=== PATIENT | female | born 1995 | race Caucasian/White ===

== ENCOUNTER 2017-05-28 01:27 | Emergency (ER) | payer SELFPAY ==
[~2017-05-28] VITALS: Ht 160 cm; Wt 68.0 kg
[2017-05-28] MEDS ORDERED: LACTATED RINGERS 1,000 ML IV ONE (01:58)
[2017-05-28] MEDS ORDERED: PIPERACILLIN SODIUM/TAZOBACTAM 4.5 GM in NS (IVPB) 100 ML IV ONE (02:00)
[2017-05-28] MEDS ORDERED: ONDANSETRON 4 MG/2 ML (SDV) Z0FRAN IVP PRN (02:00)
[2017-05-28] MEDS ORDERED: KETOROLAC 30 MG/ML VIAL IVP ONE (02:00)
[2017-05-28 02:06] LABS: BASOPHILS % (AUTO) 0 % (0-10); EOSINOPHILS % (AUTO) 0 % (0-10); HEMATOCRIT 38 % (35-52); HEMOGLOBIN 13.1 G/DL (11.5-16.0); LYMPHOCYTES % (AUTO) 7 % (12-44); MEAN CORPUSCULAR HEMOGLOBIN 30 PG (25-34); MEAN CORPUSCULAR HGB CONC 35 G/DL (32-36); MEAN CORPUSCULAR VOLUME 87 FL (80-99); MEAN PLATELET VOLUME 10.1 FL (7.4-10.4); MONOCYTES # (AUTO) 0.9 X 10^3 (0.0-1.0); MONOCYTES % (AUTO) 6 % (0-12); NEUTROPHILS # (AUTO) 12.5 X 10^3 (1.8-7.8); NEUTROPHILS % (AUTO) 87 % (42-75); PLATELET COUNT 381 10^3/uL (130-400); RED BLOOD COUNT 4.36 10^6/uL (4.35-5.85); RED CELL DISTRIBUTION WIDTH 12.1 % (10.0-14.5); WHITE BLOOD COUNT 14.4 10^3/uL (4.3-11.0)
[2017-05-28 02:20] LABS: ALANINE AMINOTRANSFERASE 19 U/L (0-55); ALBUMIN 4.2 GM/DL (3.2-4.5); ALKALINE PHOSPHATASE 106 U/L (40-136); BILIRUBIN,TOTAL 1.2 MG/DL (0.1-1.0); BUN/CREATININE RATIO 18; CALCIUM 8.9 MG/DL (8.5-10.1); CARBON DIOXIDE 18 MMOL/L (21-32); CHLORIDE 105 MMOL/L (98-107); CREATININE SERUM 0.65 MG/DL (0.60-1.30); GFR ESTIMATED > 60; GLUCOSE 121 MG/DL (70-105); LIPASE 22 U/L (8-78); POTASSIUM 3.9 MMOL/L (3.6-5.0); SODIUM 139 MMOL/L (135-145)
[2017-05-28 02:26] LABS: BAND NEUTROPHILS 2 %; LYMPHOCYTES % (MANUAL) 9 %; MONOCYTES % (MANUAL) 4 %; NEUTROPHILS % (MANUAL) 85 %; RBC MORPH NORMAL
[2017-05-28 02:42] LABS: PROTHROMBIN TIME PATIENT 13.5 SEC (12.2-14.7)
--- NOTE | 2017-05-28 03:29 | ED Abdominal Pain ---
General Chief Complaint: Abdominal/GI Problems Stated Complaint: VOMITING,ABD PAIN Nursing Triage Note: PT C/O RLQ PAIN, N/V AND FEVER AND CHILLS SINCE YESTERDAY. SHE REPORTS WORSENING OF PAIN THIS AM. Sepsis Screen: No Definite Risk Source of Information: Patient, Family (sister) Exam Limitations: No Limitations History of Present Illness Time Seen By Provider: 01:30 Initial Comments Patient presents to ER by private conveyance with her sister and a chief complaint that for the past 1 day she's had some nausea and vomited 3 times yesterday. Nausea and vomiting came 2 hours after she ate breakfast and she's not been able to keep much food or drink down since then. She had some abdominal pain in her right upper quadrant but because she is not been able to tolerate any pain medicines has not taken any Tylenol or Motrin. She says she is not sexually active but not on any kind of control. She's had no dysuria or discharge. She's had no fevers or chills nor rash. She denies shortness of breath or chest pain. She also has not had any recent trauma. She denies any surgeries on her abdomen. She had a bowel movement yesterday was normal formed without straining. Allergies and Home Medications Allergies Coded Allergies: No Known Drug Allergies (Unverified , 05/28/17) Home Medications Ondansetron 4 Mg Tab.rapdis, 4 MG PO Q6H PRN for NAUSEA/VOMITING, #8 Ref 0 Prescribed by: KAMILAH AGUDELO on 05/28/17 0336 Review of Systems Constitutional: No chills, No fever, malaise EENTM: No Blurred Vision, No Double Vision Respiratory: Denies Cough, Denies Shortness of Air Cardiovascular: Denies Chest Pain, Denies Palpitations Gastrointestinal: See HPI, Denies Abdomen Distended, Abdominal Pain, Denies Constipated, Denies Diarrhea, Nausea, Vomiting Skin: No pruritus, No rash Past Ozouxvm-Nvnzlk-Nngqxn Hx Patient Social History Alcohol Use: Occasionally Uses Alcohol Beverage of Choice: Wine Recreational Drug Use: No Smoking Status: Never a Smoker 2nd Hand Smoke Exposure: No Recent Foreign Travel: No Contact w/Someone Who Travel: No Recent Infectious Disease Expo: No Recent Hopitalizations: No Seasonal Allergies Seasonal Allergies: No Surgeries History of Surgeries: No Physical Exam Vital Signs VS - Last 72 Hours, by Label 05/28/17 01:30 Temp 100.4 Pulse 109 Resp 18 B/P (MAP) 134/98 (110) Pulse Ox 99 O2 Delivery Room Air Capillary Refill : Less Than 3 Seconds General Appearance: WD/WN, mild distress HEENT: PERRL/EOMI, pharynx normal Neck: non-tender, normal inspection Respiratory: chest non-tender, lungs clear, normal breath sounds, no respiratory distress, no accessory muscle use Cardiovascular: normal peripheral pulses, regular rate, rhythm, no edema Peripheral Pulses: 2+ Dorsalis Pedis (R), 2+ Left Dors-Pedis (L) Gastrointestinal: normal bowel sounds, soft, no organomegaly, No distended, No guarding, No rebound, tenderness (right upper quadrant with positive Saeed sign ), other (negative for tenderness over McBurney's point. Negative for mesenteric signs such as pain on shaking of abdomen, standing up or percussion to the base of her heel.) Extremities: non-tender, normal inspection, no pedal edema, normal capillary refill Neurologic/Psychiatric: alert, normal mood/affect, oriented x 3 Focused Exam Evaluation Lactate Level Laboratory Tests 05/28/17 02:10: Lactic Acid Level 1.76 Lactic Acid Level Laboratory Tests Test 05/28/17 02:10 Lactic Acid Level 1.76 MMOL/L (0.50-2.00) Progress/Results/Core Measures Results/Orders Lab Results Laboratory Tests Test 05/28/17 01:45 05/28/17 02:10 05/28/17 02:25 05/28/17 03:55 Range/Units White Blood Count 14.4 H 4.3-11.0 10^3/uL Red Blood Count 4.36 4.35-5.85 10^6/uL Hemoglobin 13.1 11.5-16.0 G/DL Hematocrit 38 35-52 % Mean Corpuscular Volume 87 80-99 FL Mean Corpuscular Hemoglobin 30 25-34 PG Mean Corpuscular Hemoglobin Concent 35 32-36 G/DL Red Cell Distribution Width 12.1 10.0-14.5 % Platelet Count 381 130-400 10^3/uL Mean Platelet Volume 10.1 7.4-10.4 FL Neutrophils (%) (Auto) 87 H 42-75 % Lymphocytes (%) (Auto) 7 L 12-44 % Monocytes (%) (Auto) 6 0-12 % Eosinophils (%) (Auto) 0 0-10 % Basophils (%) (Auto) 0 0-10 % Neutrophils # (Auto) 12.5 H 1.8-7.8 X 10^3 Lymphocytes # (Auto) 1.0 1.0-4.0 X 10^3 Monocytes # (Auto) 0.9 0.0-1.0 X 10^3 Eosinophils # (Auto) 0.0 0.0-0.3 10^3/uL Basophils # (Auto) 0.0 0.0-0.1 10^3/uL Neutrophils % (Manual) 85 % Lymphocytes % (Manual) 9 % Monocytes % (Manual) 4 % Band Neutrophils 2 % Blood Morphology Comment NORMAL Sodium Level 139 135-145 MMOL/L Potassium Level 3.9 3.6-5.0 MMOL/L Chloride Level 105 98-107 MMOL/L Carbon Dioxide Level 18 L 21-32 MMOL/L Anion Gap 16 H 5-14 MMOL/L Blood Urea Nitrogen 12 7-18 MG/DL Creatinine 0.65 0.60-1.30 MG/DL Estimat Glomerular Filtration Rate > 60 BUN/Creatinine Ratio 18 Glucose Level 121 H 70-105 MG/DL Calcium Level 8.9 8.5-10.1 MG/DL Total Bilirubin 1.2 H 0.1-1.0 MG/DL Aspartate Amino Transf (AST/SGOT) 21 5-34 U/L Alanine Aminotransferase (ALT/SGPT) 19 0-55 U/L Alkaline Phosphatase 106 40-136 U/L Total Protein 8.0 6.4-8.2 GM/DL Albumin 4.2 3.2-4.5 GM/DL Lipase 22 8-78 U/L Lactic Acid Level 1.76 0.50-2.00 MMOL/L Prothrombin Time 13.5 12.2-14.7 SEC INR Comment 1.0 0.8-1.4 Activated Partial Thromboplast Time 29 24-35 SEC Urine Color YELLOW Urine Clarity SLIGHTLY CLOUDY Urine pH 6 5-9 Urine Specific [place] 1.015 L 1.016-1.022 Urine Protein NEGATIVE NEGATIVE Urine Glucose (UA) NEGATIVE NEGATIVE Urine Ketones NEGATIVE NEGATIVE Urine Nitrite NEGATIVE NEGATIVE Urine Bilirubin NEGATIVE NEGATIVE Urine Urobilinogen NORMAL NORMAL MG/DL Urine Leukocyte Esterase 2+ H NEGATIVE Urine RBC (Auto) NEGATIVE NEGATIVE Urine RBC 0-2 /HPF Urine WBC 0-2 /HPF Urine Squamous Epithelial Cells 10-25 H /HPF Urine Crystals NONE /LPF Urine Bacteria TRACE /HPF Urine Casts NONE /LPF Urine Mucus NEGATIVE /LPF Urine Culture Indicated NO Urine Test NEGATIVE NEGATIVE My Orders Orders - KAMILAH AGUDELO Cbc With Automated Diff (05/28/17 01:58) Comprehensive Metabolic Panel (05/28/17 01:58) Lactic Acid Analyzer (05/28/17 01:58) Blood Culture (05/28/17 01:58) Sputum Culture (05/28/17 01:58) Ua Culture If Indicated (05/28/17 01:58) Protime With Inr (05/28/17 01:58) Partial Thromboplastin Time (05/28/17 01:58) O2 (05/28/17 01:58) Ondansetron Injection (Zofran Injectio (05/28/17 02:00) Saline Lock/Iv-Start (05/28/17 01:58) Saline Lock/Iv-Start (05/28/17 01:58) Piperacillin Sodium/Tazobactam (Zosyn Vi (05/28/17 02:00) Vital Signs Adult Sepsis Patie Q1H (05/28/17 01:58) Remove Rings In Anticipation O (05/28/17 01:58) Saline Lock/Iv-Start (05/28/17 01:58) Lactated Ringers (Lr 1000 Ml Iv Solution (05/28/17 01:58) Hcg,Qualitative Urine (05/28/17 01:58) Lipase (05/28/17 01:58) Us Gallbladder 11134 (05/28/17 01:58) Ketorolac Injection (Toradol Injection) (05/28/17 02:00) Manual Differential (05/28/17 01:45) Medications Given in ED Current Medications Medications Dose Ordered Sig/Adali Route Start Time Stop Time Status Last Admin Dose Admin Ketorolac Tromethamine 15 mg ONCE ONCE IVP 05/28/17 02:00 05/28/17 02:02 DC 05/28/17 02:09 15 MG Lactated Ringer's 1,000 ml @ 0 mls/hr Q0M ONCE IV 05/28/17 01:58 05/28/17 02:02 DC 05/28/17 02:09 0 MLS/HR Ondansetron HCl 4 mg ONCE PRN IVP 05/28/17 02:00 05/28/17 02:10 DC 05/28/17 02:09 4 MG Vital Signs/I&O Vital Sign - Last 12Hours 05/28/17 01:30 Temp 100.4 Pulse 109 Resp 18 B/P (MAP) 134/98 (110) Pulse Ox 99 O2 Delivery Room Air Blood Pressure Mean: 110 Progress Note : Time: 03:27 Progress Note Patient was given 15 mg of Toradol and some Zofran and her symptoms have resolved. Ultrasound of her right upper quadrant does not reveal infected, impacted or dilated gallbladder or duct's. Her alkaline phosphatase is normal. Bilirubin is mildly elevated. Her white count is mildly elevated at 14,000 which could be from her recent nausea and vomiting. A viral gastroenteritis could possibly explain her epigastric and right upper quadrant pain. Since her pain resolved with the NSAIDs we'll give her some antibiotics to go home with and told her to keep taking the Tylenol Motrin as necessary. If her pain becomes unbearable despite these medications or her nausea does not respond to the Zofran or she develops a fever above 100.3 she should return to the ER. We are still pending the urinalysis. Diagnostic Imaging Diagonstic Imaging: Ultrasound Plain Films/CT/US/NM/MRI: abdomen (right upper quadrant) Comments Unremarkable all bladder ultrasound. Negative for stones, cholecystitis, ductal dilatation. Stat read read no cholelithiasis. No ductal dilatation. Reviewed: Reviewed [place] Study, Reviewed by Me Departure Impression Impression: Primary Impression: Right upper quadrant abdominal pain of unknown etiology Additional Impression: Nausea & vomiting Qualified Codes: R11.2 - Nausea with vomiting, unspecified Disposition: HOME, SELF-CARE Condition: Improved Departure-Patient Inst. Decision time for Depature: 04:28 Referrals: NO,LOCAL PHYSICIAN (PCP/Family) Primary Care Physician Patient Instructions: Viral Gastroenteritis, Adult (DC) Add. Discharge Instructions: Catch up with your fluid intake with half strength Gatorade or water. If you have nausea you can take one tablet of Zofran and place it on your tongue every 6 hours as needed. If you're having pain you can use 800 mg of ibuprofen every 8 hours and/or 1000 mg of Tylenol every 8 hours. If you're pain becomes unbearable or if you have nausea and vomiting despite the Zofran you should return to the ER. If you develops a fever above 102.5F you should return to the ER for further evaluation. If you do vomit you should give yourself some gut rest. Do not eat or drink anything for one to 2 hours. Then you may slowly reintroduce sips of clear liquids and advance your diet as tolerated. All discharge instructions reviewed with patient and/or family. Voiced understanding. Scripts Ondansetron (Ondansetron Odt) 4 Mg Tab.rapdis 4 MG PO Q6H Y for NAUSEA/VOMITING, #8 TAB 0 Refills Prov: KAMILAH AGUDELO 05/28/17 Work/School Note: Work Release Form Date Seen in the Emergency Department: May 28, 2017 Return to Work: May 29, 2017 Restrictions: No Restrictions KAIMLAH AGUDELO May 28, 2017 03:29
[2017-05-28] MEDS ORDERED: ONDA4TAB11 PO (03:36)
[2017-05-28 04:03] LABS: BILIRUBIN,URINE NEGATIVE (NEGATIVE); CLARITY,URINE SLIGHTLY CLOUDY; COLOR,URINE YELLOW; GLUCOSE, URINE (UA) NEGATIVE (NEGATIVE); KETONES,URINE NEGATIVE (NEGATIVE); LEUKOCYTE ESTERASE ,URINE 2+ (NEGATIVE); NITRITE,URINE NEGATIVE (NEGATIVE); PH,URINE 6 (5-9); PROTEIN,URINE NEGATIVE (NEGATIVE); UROBILINOGEN,URINE NORMAL (NORMAL)
[2017-05-28 04:16] LABS: BACTERIA,URINE TRACE /HPF; RBC,URINE 0-2 /HPF; WBC,URINE 0-2 /HPF
[2017-05-28 04:30] VITALS: BP 128/74
--- NOTE | 2017-05-28 08:22 | Diagnostic Imaging Report ---
PROCEDURE: US Gallbladder. TECHNIQUE: Multiple real-time grayscale images were obtained over the right upper quadrant in various projections. INDICATION: Right-sided pain. Liver parenchyma appeared normal. The gallbladder normal. There is no intra-or extrahepatic bile duct dilatation. The right kidney is unobstructed. Pancreas largely obscured from visualization by bowel gas. IMPRESSION: No hepatobiliary abnormality. No pathological finding visualized. Dictated by: Dictated on workstation # [id number]
== END 2017-05-28 04:30 | disposition home or self-care (01) ==
LOC: EDUNIT# 01:27 → ER 01:32
DX: R10.11 Right upper quadrant pain (principal); R11.2 Nausea with vomiting, unspecified
CPT/HCPCS: 36415; 76705; 80053; 81000; 83605; 83690; 84703; 85007; 85027; 85610; 85730; 87040

== ENCOUNTER → 2020-01-07 | Outpatient (CLI) | payer BC ==
[~2020-01-07] MED LIST: CATHETER FLUSH 10 ML SYR IV PRN; ONDA4TAB11 PO
--- NOTE | 2020-01-07 12:12 | Diagnostic Imaging Report ---
INDICATION: Right upper quadrant pain. TECHNIQUE: Patient was administered 5.4 mCi technetium 99m Choletec intravenously and imaging over the abdomen was performed. At 45 minutes, patient ingested 8 ounces of Ensure and a gallbladder ejection fraction was calculated. Patient denied discomfort during the study. FINDINGS: There is homogeneous uptake of activity by the liver. Prompt excretion of activity into the common duct and gallbladder is noted with normal passage of activity into the small bowel. Gallbladder ejection fraction is normal at 36%. Normal values are 35% or greater. IMPRESSION: Normal HIDA scan and gallbladder ejection fraction. Dictated by: Dictated on workstation # [id number]
== END ==
LOC: CARD 09:30
PROVIDERS: ATTEND Nurse Practitioner
DX: R10.11 Right upper quadrant pain (principal); R11.2 Nausea with vomiting, unspecified; R10.13 Epigastric pain
CPT/HCPCS: 78227; A9537

== ENCOUNTER → 2021-01-24 | Outpatient (CLI) | payer BC ==
[~2021-01-24] MED LIST changes: -CATHETER FLUSH 10 ML SYR IV PRN
--- NOTE | 2021-01-24 16:46 | Diagnostic Imaging Report ---
INDICATION: patient, survey. TECHNIQUE: Multiple real-time grayscale images were obtained over the gravid uterus. COMPARISON: None. FINDINGS: A single live intrauterine fetus is seen measuring at 19 weeks 2 days in size by composite measurements. Fetus is in breech presentation. Amniotic fluid index is normal at 9.4 cm. Placenta is anterior and somewhat low lying, about 2.3 cm from the internal cervical os. heart rate is 142 BPM. Cervical length is 3.3 cm. survey is somewhat limited. Normal-appearing bladder and stomach were seen. Intracranial ventricles appear normal. Four-chamber heart view and cord and cord insertion were not well seen. spine and kidneys were not well seen. There is no adnexal free fluid. Biometrical measurements are as follows: Biparietal 4.06 cm, age 18 weeks 3 days. Head circumference 16.57 cm, age 19 weeks 2 days. Abdominal circumference 13.81 cm, age 19 weeks 2 days. Femur length 3.16 cm, age 19 weeks 6 days. Sonographic estimate age: 19 weeks 2 days. Sonographic estimated date of delivery: 06/18/21. Estimated Weight: 293 gm (+/- 43 gm). LMP percentile: 24%. heart rate: 142 beats per minute. number: 1 of 1. IMPRESSION: Single live intrauterine fetus measuring 19 weeks 2 days in size. survey was limited with multiple structures not well seen at this time, follow-up study in a couple of weeks may be helpful. Dictated by: Dictated on workstation # [id number]
== END ==
LOC: RAD 14:30
PROVIDERS: ATTEND Nurse Practitioner Women's Health
DX: Z34.02 Encounter for supervision of normal first pregnancy, second trimester (principal); Z3A.19 19 weeks gestation of pregnancy
CPT/HCPCS: 76805

== ENCOUNTER 2021-02-14 18:15 | Outpatient (CLI) | payer BC, MEDICAID ==
[~2021-02-14] VITALS: Ht 160 cm; Wt 73.8 kg
[2021-02-14 18:39] VITALS: BP 127/84
[2021-02-14 18:41] VITALS: BP 127/84
[2021-02-14 18:59] LABS: BILIRUBIN,URINE NEGATIVE (NEGATIVE); CLARITY,URINE CLEAR; COLOR,URINE YELLOW; GLUCOSE, URINE (UA) NEGATIVE (NEGATIVE); KETONES,URINE NEGATIVE (NEGATIVE); LEUKOCYTE ESTERASE ,URINE NEGATIVE (NEGATIVE); NITRITE,URINE NEGATIVE (NEGATIVE); PH,URINE 7.5 (5-9); PROTEIN,URINE NEGATIVE (NEGATIVE)
[2021-02-14 19:08] LABS: BACTERIA,URINE NEGATIVE /HPF; SQUAMOUS EPITHELIAL CELL,UR 0-2 /HPF
[2021-02-14] MEDS ORDERED: PREN-37 PO (19:20)
[2021-02-14 19:31] VITALS: BP 127/84
--- NOTE | 2021-02-15 09:18 | Physician Query-Final Dx ---
ADIS NOEL 02/15/21 0918: Clinic Account Progress/Dx Physician Query: Please give diagnosis Please include # weeks gestation Date of Service Feb 14, 2021 at 18:15 JIMBO PUGH MD 02/15/21 1429: Clinic Account Progress/Dx DIAGNOSIS: Diagnosis 23 weeks with vaginal discharge / leukorrhea ADIS NOEL Feb 15, 2021 09:18 JIMBO PUGH MD Feb 15, 2021 14:29
== END 2021-02-14 19:30 | disposition home or self-care (01) ==
LOC: WSo 18:15 → LDRP 18:21 → WSo 19:30
PROVIDERS: ATTEND Obstetrics & Gynecology
DX: O42.912 Preterm premature rupture of membranes, unspecified as to length of time between rupture and onset of labor, second trimester (principal); N89.8 Other specified noninflammatory disorders of vagina; Z3A.23 23 weeks gestation of pregnancy
CPT/HCPCS: 81000

== ENCOUNTER 2022-03-24 22:57 | Emergency (ER) | payer BC, MEDICAID ==
[~2022-03-24 22:57] MED LIST changes: +PREN-37 PO
--- NOTE | 2022-03-24 23:13 | ED Abdominal Pain ---
General Stated Complaint: ABD PAIN Source of Information: Patient Exam Limitations: No Limitations History of Present Illness Date Seen by Provider: Mar 24, 2022 Time Seen by Provider: 23:03 Initial Comments 56-year-old female presents for right lower mid abdominal pain. Symptoms started just prior to arrival. She has been pain in this area before with [employer] work-ups over she states its not been this severe. Is described as sharp stabbing pain in the right mid to lower abdomen without radiation. No aggravating or alleviating factors. Associated with nausea and some loose stools this evening. She was fine prior to the onset of her symptoms currently no changes in bladder habits. She has had a Depo shot and her last menstrual cycle was 2 months ago. No vaginal symptoms. Allergies and Home Medications Allergies Coded Allergies: No Known Drug Allergies (Unverified , 05/28/17) Patient Home Medication List Home Medication List Reviewed: Yes Ondansetron (Ondansetron Odt) 4 Mg Tab.rapdis, 4 MG PO Q6H PRN for NAUSEA/VOMITING Prescribed by: KAMILAH AGUDELO on 05/28/17 0336 Vit/Iron Fumarate/FA ( Tablet) 1 Each Tablet, 1 EACH PO DAILY, (Reported) Entered as Reported by: NIKITA GUEVARA on 02/14/211919 Review of Systems Review of Systems Constitutional: no symptoms reported EENTM: No Symptoms Reported Respiratory: No Symptoms Reported Cardiovascular: No Symptoms Reported Gastrointestinal: Abdominal Pain, Nausea Genitourinary: No Symptoms Reported Musculoskeletal: no symptoms reported Skin: no symptoms reported Psychiatric/Neurological: No Symptoms Reported Endocrine: No Symptoms Reported Hematologic/Lymphatic: No Symptoms Reported Past Xezxykh-Psbehd-Uktact Hx Patient Social History Tobacco Use?: No Use of E-Cig and/or Vaping dev: No Substance use?: No Alcohol Use?: No Seasonal Allergies Seasonal Allergies: No Past Medical History Surgeries: No Family Medical History Reviewed Nursing Family Hx No Pertinent Family Hx Physical Exam Vital Signs Vital Signs - First Documented 03/24/22 23:06 Temp 36.8 Pulse 74 Resp 16 B/P (MAP) 126/81 (96) Pulse Ox 100 O2 Delivery Room Air Capillary Refill : Height/Weight/BMI Height: 5'3.00" Weight: 150lbs. oz. 68.597384dx; 28.82 BMI Method:Stated General Appearance: WD/WN, no apparent distress HEENT: normal ENT inspection, pharynx normal Neck: non-tender, full range of motion, supple, normal inspection Respiratory: chest non-tender, lungs clear, normal breath sounds, no respiratory distress, no accessory muscle use Cardiovascular: regular rate, rhythm, no edema, no gallop, no JVD, no murmur Gastrointestinal: normal bowel sounds, soft, no organomegaly, no pulsatile mass, tenderness (Tenderness palpation right mid upper and lower abdomen. Voluntary guarding without any rebound tenderness. No mass organomegaly. No skin changes.) Extremities: normal range of motion, non-tender, normal inspection, no pedal edema, no calf tenderness, normal capillary refill Back: normal inspection, no CVA tenderness, no vertebral tenderness Neurologic/Psychiatric: alert, normal mood/affect, oriented x 3 Skin: normal color, warm/dry Lymphatic: no adenopathy Progress/Results/Core Measures Results/Orders Lab Results Laboratory Tests Test 03/24/22 23:14 03/24/22 23:29 Range/Units Urine Color YELLOW Urine Clarity CLEAR Urine pH 6.0 5-9 Urine Specific [place] 1.025 H 1.016-1.022 Urine Protein NEGATIVE NEGATIVE Urine Glucose (UA) NEGATIVE NEGATIVE Urine Ketones NEGATIVE NEGATIVE Urine Nitrite NEGATIVE NEGATIVE Urine Bilirubin NEGATIVE NEGATIVE Urine Urobilinogen 1.0 < = 1.0 MG/DL Urine Leukocyte Esterase 1+ H NEGATIVE Urine RBC (Auto) TRACE-I H NEGATIVE Urine RBC 0-2 /HPF Urine WBC 2-5 /HPF Urine Squamous Epithelial Cells 2-5 /HPF Urine Crystals NONE /LPF Urine Bacteria TRACE /HPF Urine Casts NONE /LPF Urine Mucus SMALL H /LPF Urine Culture Indicated YES White Blood Count 9.9 4.3-11.0 10^3/uL Red Blood Count 4.43 3.80-5.11 10^6/uL Hemoglobin 12.9 11.5-16.0 g/dL Hematocrit 38 35-52 % Mean Corpuscular Volume 86 80-99 fL Mean Corpuscular Hemoglobin 29 25-34 pg Mean Corpuscular Hemoglobin Concent 34 32-36 g/dL Red Cell Distribution Width 11.9 10.0-14.5 % Platelet Count 359 130-400 10^3/uL Mean Platelet Volume 9.0 9.0-12.2 fL Immature Granulocyte % (Auto) 1 % Neutrophils (%) (Auto) 36 L 42-75 % Lymphocytes (%) (Auto) 54 H 12-44 % Monocytes (%) (Auto) 8 0-12 % Eosinophils (%) (Auto) 1 0-10 % Basophils (%) (Auto) 0 0-10 % Neutrophils # (Auto) 3.6 1.8-7.8 10^3/uL Lymphocytes # (Auto) 5.4 H 1.0-4.0 10^3/uL Monocytes # (Auto) 0.8 0.0-1.0 10^3/uL Eosinophils # (Auto) 0.1 0.0-0.3 10^3/uL Basophils # (Auto) 0.0 0.0-0.1 10^3/uL Immature Granulocyte # (Auto) 0.1 0.0-0.1 10^3/uL Neutrophils % (Manual) 42 % Lymphocytes % (Manual) 48 % Monocytes % (Manual) 7 % Atypical Lymphocytes 8 % Blood Morphology Comment NORMAL Sodium Level 138 135-145 MMOL/L Potassium Level 2.8 L 3.6-5.0 MMOL/L Chloride Level 108 H 98-107 MMOL/L Carbon Dioxide Level 17 L 21-32 MMOL/L Anion Gap 13 5-14 MMOL/L Blood Urea Nitrogen 16 7-18 MG/DL Creatinine 0.79 0.60-1.30 MG/DL Estimat Glomerular Filtration Rate 104 BUN/Creatinine Ratio 20 Glucose Level 141 H 70-105 MG/DL Calcium Level 8.9 8.5-10.1 MG/DL Corrected Calcium 8.9 8.5-10.1 MG/DL Total Bilirubin 0.4 0.1-1.0 MG/DL Aspartate Amino Transf (AST/SGOT) 90 H 5-34 U/L Alanine Aminotransferase (ALT/SGPT) 59 H 0-55 U/L Alkaline Phosphatase 92 40-136 U/L Total Protein 7.5 6.4-8.2 GM/DL Albumin 4.0 3.2-4.5 GM/DL Lipase 53 8-78 U/L Serum Test, Qualitative NEGATIVE NEGATIVE My Orders Orders - TIMURJOSEF DO Comprehensive Metabolic Panel (03/24/22 23:10) Lipase (03/24/22 23:10) Ua Culture If Indicated (03/24/22 23:10) Hcg,Qualitative Serum (03/24/22 23:10) Cbc With Automated Diff (03/24/22 23:10) Fentanyl Inj (Sublimaze Injection) (03/24/22 23:15) Ondansetron Injection (Zofran Injectio (03/24/22 23:15) Urine Culture (03/24/22 23:14) Potassium Chloride (Tablet) (K Dur Table (03/25/22 00:15) Ct Abdomen/Pelvis W (03/25/22 00:01) Manual Differential (03/24/22 23:29) Iohexol Injection (Omnipaque 350 Mg/Ml 1 (03/25/22 00:30) Received Contrast (Hold Metformin- Contr (03/25/22 00:30) Ns (Ivpb) (Sodium Chloride 0.9% Ivpb Bag (03/25/22 00:30) Medications Given in ED Current Medications Medications Dose Ordered Sig/Adali Route Start Time Stop Time Status Last Admin Dose Admin Fentanyl Citrate 50 mcg ONCE ONCE IVP 03/24/22 23:15 03/24/22 23:16 DC 03/24/22 23:29 50 MCG Iohexol 100 ml ONCE ONCE IV 03/25/22 00:30 03/25/22 00:40 DC 03/25/22 00:32 80 ML Ondansetron HCl 8 mg ONCE ONCE IVP 03/24/22 23:15 03/24/22 23:16 DC 03/24/22 23:28 8 MG Potassium Chloride 40 meq ONCE ONCE PO 03/25/22 00:15 03/25/22 00:16 DC 03/25/22 00:30 40 MEQ Sodium Chloride 100 ml ONCE ONCE IV 03/25/22 00:30 03/25/22 00:40 DC 03/25/22 00:32 80 ML Vital Signs/I&O 03/24/22 23:06 Temp 36.8 Pulse 74 Resp 16 B/P (MAP) 126/81 (96) Pulse Ox 100 O2 Delivery Room Air Diagnostic Imaging Diagonstic Imaging: CT Plain Films/CT/US/NM/MRI: abdomen, pelvis Comments No acute findings according to stat rad Departure Communication (Admissions) Patient is hemodynamically stable nonsurgical abdominal exam. CT scan negative for any acute findings. Lab work-up is reassuring and shows mild hypokalemia. Repleted normal which she tolerated without difficulty. Discharged with nausea medicine and otherwise stable condition. Impression Primary Impression: Right sided abdominal pain Disposition: HOME, SELF-CARE Condition: Stable Departure-Patient Inst. Referrals: [facility] [place] (PCP/Family) Primary Care Physician Patient Instructions: Flank Pain ED Add. Discharge Instructions: Use Motrin and Tylenol as needed for pains. Follow-up with primary doctor for repeat symptoms persist. Use nausea medicine as needed. Return to the emergency department for any severe concerns. Scripts Ondansetron (Ondansetron Odt) 8 Mg Tab.rapdis 8 MG SL Q4H PRN for NAUSEA/VOMITING for 3 Days, #18 TAB Prov: JOSEF DING DO 03/25/22 JOSEF DING DO Mar 24, 2022 23:13
[2022-03-24] MEDS ORDERED: ONDANSETRON 4 MG/2 ML (SDV) Z0FRAN IVP ONE (23:15)
[2022-03-24] MEDS ORDERED: fentaNYL INJ 100 MCG/2 ML AMP IVP ONE (23:15)
[2022-03-24 23:21] LABS: BILIRUBIN,URINE NEGATIVE (NEGATIVE); CLARITY,URINE CLEAR; COLOR,URINE YELLOW; GLUCOSE, URINE (UA) NEGATIVE (NEGATIVE); KETONES,URINE NEGATIVE (NEGATIVE); LEUKOCYTE ESTERASE ,URINE 1+ (NEGATIVE); NITRITE,URINE NEGATIVE (NEGATIVE); PROTEIN,URINE NEGATIVE (NEGATIVE)
[2022-03-24 23:36] LABS: BASOPHILS % (AUTO) 0 % (0-10); EOSINOPHILS # (AUTO) 0.1 10^3/uL (0.0-0.3); EOSINOPHILS % (AUTO) 1 % (0-10); HEMATOCRIT 38 % (35-52); HEMOGLOBIN 12.9 g/dL (11.5-16.0); LYMPHOCYTES # (AUTO) 5.4 10^3/uL (1.0-4.0); LYMPHOCYTES % (AUTO) 54 % (12-44); MEAN CORPUSCULAR HEMOGLOBIN 29 pg (25-34); MEAN CORPUSCULAR HGB CONC 34 g/dL (32-36); MEAN CORPUSCULAR VOLUME 86 fL (80-99); MONOCYTES # (AUTO) 0.8 10^3/uL (0.0-1.0); MONOCYTES % (AUTO) 8 % (0-12); NEUTROPHILS # (AUTO) 3.6 10^3/uL (1.8-7.8); NEUTROPHILS % (AUTO) 36 % (42-75); PLATELET COUNT 359 10^3/uL (130-400); WHITE BLOOD COUNT 9.9 10^3/uL (4.3-11.0)
[2022-03-24 23:50] LABS: RBC,URINE 0-2 /HPF
[2022-03-24 23:51] LABS: BACTERIA,URINE TRACE /HPF
[2022-03-24 23:52] LABS: POTASSIUM 2.8 MMOL/L (3.6-5.0)
[2022-03-24 23:53] LABS: CALCIUM 8.9 MG/DL (8.5-10.1)
[2022-03-24 23:54] LABS: TOTAL PROTEIN 7.5 GM/DL (6.4-8.2)
[2022-03-24 23:56] LABS: BILIRUBIN,TOTAL 0.4 MG/DL (0.1-1.0)
[2022-03-24 23:58] LABS: CREATININE SERUM 0.79 MG/DL (0.60-1.30)
[2022-03-25] MEDS ORDERED: KCL 20 MEQ TAB (K-DUR) PO ONE (00:15)
[2022-03-25 00:24] LABS: ATYPICAL LYMPHOCYTES 8 %; LYMPHOCYTES % (MANUAL) 48 %; MONOCYTES % (MANUAL) 7 %; NEUTROPHILS % (MANUAL) 42 %; RBC MORPH NORMAL
[2022-03-25] MEDS ORDERED: IOHEXOL 350 MG/ML 100 ML (OMNIPAQUE 350) VIAL IV ONE (00:30)
[2022-03-25] MEDS ORDERED: HOLD METFORMIN - RECEIVED CONTRAST 20 ML VIAL IV SCH (00:30)
[2022-03-25] MEDS ORDERED: NS 100 ML (IVPB) BAG IV ONE (00:30)
[2022-03-25] MEDS ORDERED: ONDA8TAB13 SL (00:54)
[2022-03-25 00:58] VITALS: BP 108/74
--- NOTE | 2022-03-25 07:31 | Diagnostic Imaging Report ---
CT ABDOMEN/PELVIS W TECHNIQUE: Multiple contiguous axial images were obtained through the abdomen and pelvis after administration of intravenous contrast. All CT scans use one or more of the following dose optimizing techniques: automated exposure control, MA and/or KvP adjustment based on patient size and exam type or iterative reconstruction. INDICATION: Right-sided abdominal pain COMPARISON: None available. FINDINGS: Lower chest: The lung bases are clear. No pericardial or pleural effusion. Peritoneum: No free intraperitoneal air or fluid. Liver and biliary system: The liver is normal. The gallbladder is normal. No biliary duct dilation. Spleen and Pancreas: Spleen is normal. The pancreas enhances normally without mass lesion or peripancreatic inflammatory changes. Adrenals: Normal. tract: The kidneys enhance normally without suspicious mass or obstruction. Urinary bladder is distended without wall thickening. Uterus and ovaries are normal in appearance. GI tract: Stomach is normally filled with fluid and has no wall thickening. No bowel obstruction. No pericolonic inflammatory changes. Normal appendix. Vasculature and Lymph nodes: Normal caliber aorta. No abdominal or pelvic lymphadenopathy. Musculoskeletal: No concerning osseous lesion. IMPRESSION: 1. No acute intra-abdominal process. 2. Findings are in agreement with the preliminary report. Dictated by: Dictated on workstation # [id number]
== END 2022-03-25 01:05 | disposition home or self-care (01) ==
LOC: EDUNIT# 22:57 → ER 22:58
DX: R10.31 Right lower quadrant pain (principal); R10.11 Right upper quadrant pain; E87.6 Hypokalemia; Z32.02 Encounter for pregnancy test, result negative; Z28.310 Unvaccinated for COVID-19
CPT/HCPCS: 36415; 74177; 80053; 81000; 83690; 84703; 85007; 85027; 87088

== ENCOUNTER 2022-03-29 15:18 | Emergency (ER) | payer BC, MEDICAID ==
[~2022-03-29] VITALS: Ht 160 cm; Wt 74.8 kg
[~2022-03-29 15:18] MED LIST changes: +ONDA8TAB13 SL
[2022-03-29 15:57] LABS: BILIRUBIN,URINE NEGATIVE (NEGATIVE); CLARITY,URINE CLEAR; COLOR,URINE YELLOW; GLUCOSE, URINE (UA) NEGATIVE (NEGATIVE); KETONES,URINE NEGATIVE (NEGATIVE); LEUKOCYTE ESTERASE ,URINE 1+ (NEGATIVE); NITRITE,URINE NEGATIVE (NEGATIVE); PROTEIN,URINE NEGATIVE (NEGATIVE)
--- NOTE | 2022-03-29 16:04 | ED General ---
General Chief Complaint: Allergic Reaction Stated Complaint: REACTION TO MEDICATION,ITCHINESS,ORANGE URINE Nursing Triage Note: STATES SHE WAS SEEN HERE ON FRIDAY AND HAD A CT SCAN DONE AND SHE HAS BEEN ITCHING SINCE AND HER URINE IS ORANGE Source of Information: Patient Exam Limitations: No Limitations History of Present Illness Date Seen by Provider: Mar 29, 2022 Time Seen by Provider: 15:51 Initial Comments Patient is a 26-year-old female who presents to the emergency department today with a chief complaint of itching "all over". She was recently seen in the emergency department Friday, 1 week ago with right upper quadrant pain. She presents with concern today that her urine is much darker than normal. She states that the abdominal discomfort has improved. No fevers or chills. She is not nauseous. She was having diarrhea but that has subsided. No blood in her stools or rashes. She has never had symptoms like this before. She was given a prescription for nausea at her previous ED visit. No chronic medical conditions. No exposures to illnesses. Initially as I was talking to the patient I explained that she would not be having such a delayed reaction to IV contrast dye. That would have been a more immediate onset and she states just in the last several days her itching has started. On closer examination her sclerae appear anicteric. Initially a basic metabolic panel and urinalysis were ordered I added on liver functions to fur ther assess her transaminases and bilirubin. Patient's vital signs are stable. No acute distress. All other review of systems reviewed and negative except as stated. Timing/Duration: 2-3 Days Severity: Mild Associated Systoms: Denies Symptoms Allergies and Home Medications Allergies Coded Allergies: No Known Drug Allergies (Unverified , 05/28/17) Patient Home Medication List Home Medication List Reviewed: Yes Ondansetron (Ondansetron Odt) 4 Mg Tab.rapdis, 4 MG PO Q6H PRN for NAUSEA/VOMITING Prescribed by: KAMILAH AGUDELO on 05/28/17 0336 Ondansetron (Ondansetron Odt) 8 Mg Tab.rapdis, 8 MG SL Q4H PRN for NAUSEA/VOMITING Prescribed by: JOSEF DING MD on 03/25/22 0054 Vit/Iron Fumarate/FA ( Tablet) 1 Each Tablet, 1 EACH PO DAILY, (Reported) Entered as Reported by: NIKITA GUEVARA on 02/14/211919 Review of Systems Review of Systems Constitutional: see HPI EENTM: no symptoms reported Respiratory: no symptoms reported Cardiovascular: no symptoms reported Gastrointestinal: no symptoms reported Genitourinary: other (Dark urine) : No Musculoskeletal: no symptoms reported Skin: pruritus All Other Systems Reviewed Negative Unless Noted: Yes Past Nkhabfa-Irejeo-Npdezb Hx Patient Social History Tobacco Use?: No Substance use?: No Alcohol Use?: No Seasonal Allergies Seasonal Allergies: No Past Medical History Surgeries: No Family Medical History No Pertinent Family Hx Physical Exam Vital Signs Vital Signs - First Documented 03/29/22 15:25 Temp 36.9 Pulse 75 Resp 16 B/P (MAP) 137/91 (106) Pulse Ox 99 O2 Delivery Room Air Capillary Refill : Less Than 3 Seconds Height, Weight, BMI Height: 5'3.00" Weight: 150lbs. oz. 68.346249bt; 29.00 BMI Method:Stated General Appearance: No Apparent Distress, WD/WN Eyes: Bilateral Eye Scleral Icterus HEENT: PERRL/EOMI, Pharynx Normal Neck: Normal Inspection Respiratory: Lungs Clear, Normal Breath Sounds, No Accessory Muscle Use, No Respiratory Distress Cardiovascular: Regular Rate, Rhythm, Normal Peripheral Pulses Gastrointestinal: Normal Bowel Sounds, Non Tender, Soft; No Hepatomegaly Extremity: Normal Capillary Refill, Normal Inspection, Normal Range of Motion Neurologic/Psychiatric: Alert, Oriented x3, No Motor/Sensory Deficits, Normal Mood/Affect, internal audit director II-XII Norm as Tested Skin: Normal Color, Warm/Dry Progress/Results/Core Measures Suspected Sepsis SIRS Temperature: Pulse: 75 Respiratory Rate: 16 Blood Pressure 137 /91 Mean: 106 Laboratory Tests 03/29/22 15:58: Creatinine 0.81, Total Bilirubin 4.4H Results/Orders Lab Results Laboratory Tests Test 03/29/22 15:43 03/29/22 15:58 03/29/22 16:00 Range/Units Urine Color YELLOW Urine Clarity CLEAR Urine pH 6.0 5-9 Urine Specific [place] <=1.005 1.016-1.022 Urine Protein NEGATIVE NEGATIVE Urine Glucose (UA) NEGATIVE NEGATIVE Urine Ketones NEGATIVE NEGATIVE Urine Nitrite NEGATIVE NEGATIVE Urine Bilirubin NEGATIVE NEGATIVE Urine Urobilinogen 0.2 < = 1.0 MG/DL Urine Leukocyte Esterase 1+ H NEGATIVE Urine RBC (Auto) NEGATIVE NEGATIVE Urine RBC RARE /HPF Urine WBC 5-10 H /HPF Urine Squamous Epithelial Cells 5-10 /HPF Urine Crystals NONE /LPF Urine Bacteria FEW H /HPF Urine Casts NONE /LPF Urine Mucus NEGATIVE /LPF Urine Culture Indicated YES Sodium Level 138 135-145 MMOL/L Potassium Level 3.7 3.6-5.0 MMOL/L Chloride Level 107 98-107 MMOL/L Carbon Dioxide Level 23 21-32 MMOL/L Anion Gap 8 5-14 MMOL/L Blood Urea Nitrogen 6 L 7-18 MG/DL Creatinine 0.81 0.60-1.30 MG/DL Estimat Glomerular Filtration Rate 101 BUN/Creatinine Ratio 7 Glucose Level 95 70-105 MG/DL Calcium Level 9.2 8.5-10.1 MG/DL Total Bilirubin 4.4 H 0.1-1.0 MG/DL Direct Bilirubin 3.2 H 0.0-0.3 MG/DL Indirect Bilirubin 1.2 MG/DL Aspartate Amino Transf (AST/SGOT) 176 H 5-34 U/L Alanine Aminotransferase (ALT/SGPT) 647 H 0-55 U/L Alkaline Phosphatase 205 H 40-136 U/L Total Protein 7.9 6.4-8.2 GM/DL Albumin 4.3 3.2-4.5 GM/DL My Orders Orders - SUHA SORENSEN MD Ua Culture If Indicated (03/29/22 15:51) Basic Metabolic Panel (03/29/22 15:52) Urine Culture (03/29/22 15:43) Liver Panel (03/29/22 16:55) Hepatitis Panel Acute (03/29/22 17:25) Vital Signs/I&O 03/29/22 03/29/22 15:25 18:23 Temp 36.9 36.4 Pulse 75 79 Resp 16 18 B/P (MAP) 137/91 (106) 128/79 Pulse Ox 99 100 O2 Delivery Room Air Room Air Capillary Refill : Less Than 3 Seconds Blood Pressure Mean: 106 Progress Note : Time: 16:30 Progress Note Noted that the patient had significantly elevated transaminases and total bilirubin on her chemistry labs. She has significant amount of bilirubin in her urine. Suspect an infectious etiology for hepatitis. Patient reports that she does not routinely eat salads when she goes out to eat. She has not had any accidental needlesticks or injections. She denies a history of IV drug abuse. Her vital signs are stable. Her exam is unremarkable. Adding on a hepatitis panel. Discussed with ED nurse manager drive to facilitate sooner visit with [facility] as she has one scheduled in late April. Talked with her extensively about return precautions. She is comfortable with the plan of care. Advised Benadryl for her itching. All questions are sought and answered Departure Impression Primary Impression: Acute hepatitis Disposition: HOME, SELF-CARE Condition: Stable Departure-Patient Inst. Decision time for Depature: 18:02 Referrals: [facility] (PCP/Family) Primary Care Physician Patient Instructions: Hepatitis Panel Add. Discharge Instructions: Drink plenty of fluids to stay well-hydrated. You can take [id number] Benadryl 1 to 2 tablets every 6 hours as needed for itching. Do not take any products containing Tylenol/acetaminophen. Call [facility] on Friday to schedule a follow-up appointment within a week to 10 days. Come back to the emergency room if you have a return of right upper abdominal pain, nausea vomiting, high fever or any other emergent, concerning symptoms. Copy Copies To 1: DOREEN SILVERIO KATHRYN M MD Mar 29, 2022 16:04
[2022-03-29 16:08] LABS: BACTERIA,URINE FEW /HPF; RBC,URINE RARE /HPF
[2022-03-29 16:24] LABS: POTASSIUM 3.7 MMOL/L (3.6-5.0)
[2022-03-29 16:25] LABS: CALCIUM 9.2 MG/DL (8.5-10.1)
[2022-03-29 16:29] LABS: CREATININE SERUM 0.81 MG/DL (0.60-1.30)
[2022-03-29 17:05] LABS: ALBUMIN 4.3 GM/DL (3.2-4.5)
[2022-03-29 17:08] LABS: TOTAL PROTEIN 7.9 GM/DL (6.4-8.2)
[2022-03-29 17:10] LABS: BILIRUBIN,TOTAL 4.4 MG/DL (0.1-1.0)
[2022-03-29 17:13] LABS: BILIRUBIN,DIRECT 3.2 MG/DL (0.0-0.3); BILIRUBIN,INDIRECT 1.2 MG/DL
[2022-03-29 18:23] VITALS: BP 128/79
[2022-04-01 12:45] LABS: HEPATITIS C ANTIBODY C Non-Reactive (Non-Reactive)
== END 2022-03-29 18:23 | disposition home or self-care (01) ==
LOC: EDUNIT# 15:18 → ER 15:20
DX: B17.9 Acute viral hepatitis, unspecified (principal); E80.7 Disorder of bilirubin metabolism, unspecified; Z28.310 Unvaccinated for COVID-19
CPT/HCPCS: 36415; 80048; 80074; 80076; 81000; 87088